=== PATIENT | female | born 1995 ===

== ENCOUNTER 2017-08-16 13:37 | Observation (INO) ==
--- NOTE | 2017-08-16 13:47 | PDOC ---
General Adult HPI - General Chief Complaint: General Medical Stated Complaint: N/V Date Seen by Provider: 08/16/17 Time Seen by Provider: 13:47 Source: POSITIVE: Patient Exam Limitations: POSITIVE: No limitations Nurse's Notes Reviewed & Considered: Yes - History of Present Illness Initial Comment: Patient is a 22-year-old female who presents to the burn department with nausea vomiting diarrhea. Patient is . She reports her symptoms started over the last 24 hours. Over the last week she has had cold with mild sore throat and congestion. Mother indicates that she's been very weak during this . She had some vaginal discharge and started herself on metronidazole which seems to be improving. Does have abdominal pain and points primarily to the epigastrium. Worse with vomiting. She was sick and seen in [facility] earlier today with fluids and Zofran. Have you received a tetanus shot in the past 10 years?: Unknown - Patient Home Medications Home Medications: Home Medications Vits W-Ca,Fe,FA(<1Mg) [] 1 tab PO DAILY 08/16/17 metroNIDAZOLE Tab [Flagyl Tab] 500 mg PO DAILY 08/16/17 - Patient Allergies Allergies/Adverse Reactions: Allergies 3 Allergy/AdvReac Type Severity Reaction Status Date / Time No Known Allergies Allergy Verified 08/16/17 14:05 Past Medical History - heen HEENT History: Denies History Cardiovascular History: Denies History Respiratory History: Denies History Gastrointestinal History: Denies History Genitourinary History: Denies History Endocrine History: Gestational Diabetes Musculoskeletal History: Denies History Neurological History: Denies History Blood Disorders: Denies History Psychiatric History: Denies History History of Sexually Transmitted Diseases: No Obstetrical History: Other (please comment) Additional Obstetrical History: Tobacco Use: Current Some Day Smoker Alcohol Use: None Previous Surgical History: Yes Type / Date of Surgery: Choly Significant Family History: No pertinent family hx Past Medical History Reviewed: New Intake History ROS - Limitations ROS Limitations: No Limitations Constitution: DENIES: Fever Cardiovascular: REPORTS: Denies Cardiac Symptoms Respiratory: REPORTS: Cough Non Productive Neurological: REPORTS: Headache Gastrointestinal: REPORTS: Abdominal Pain, Nausea, Vomitting, Diarrhea Endocrine: REPORTS: Fatigue Musculoskeletal: REPORTS: Denies MS Symptoms Genitourinary: REPORTS: Discharge Eyes: REPORTS: Denies Symptoms ENT: REPORTS: Denies Symptoms Skin: REPORTS: Denies Skin Symptoms Lympathic: REPORTS: Denies Lympathic Symptoms Immunologic: POSITIVE: Denies Symptoms General Adult Exam - General Appearance General Appearance: POSITIVE: Alert, Cooperative, Anxious - HEENT HEENT: POSITIVE: Head Inspection Nml, Eyes Inspection Nml, Ears Inspection Nml, Nose Inspection Nml, Oral/Dental Inspect. Nml, Pharynx Inspect. Nml - Pupils Pupil Size: 4 mm: Bilateral - Neck Neck: POSITIVE: Normal Inspection - Respiratory Respiratory: POSITIVE: No Respiratory Distress, Breath Sounds Normal, Chest Non- Tender - Cardiovascular Cardiovascular: POSITIVE: Regular Rate & Rhythm, No Murmur, No Gallop - Abdomen Additional Abdominal Details: Mild tenderness to palpation of the epigastrium. No significant lower abdominal tenderness to palpation. - Back Back: POSITIVE: Normal Inspection - Skin Skin: POSITIVE: Normal Color, Warm, Dry - Extremities Extremity: Non-Tender: (All Extremities), Normal ROM: (All Extremities) - Neurological / Psychological Neurological: POSITIVE: Affect Apporpriate, Oriented X3 General Adult Progress - Results Reviewed by me CBC and BMP: 08/16/17 13:58 08/16/17 13:58 - Patient's Progress MDM / ED Course: Patient is a 22-year-old female who presents to the emergency department with nausea vomiting. Vital signs are unremarkable examination him strict mild epigastric tenderness. Differential diagnosis includes but is not limited to gastritis, hyperemesis gravidarum, dehydration, pelvic infection. For serious intra-abdominal process with normal white blood cell count or tenderness over the appendix. Patient is status post cholecystectomy. Urinalysis doesn't demonstrate large ketones. No evidence of infection. Patient's pelvic swabs are negative. His glucose margareth injury or blow Zofran and Reglan feeling somewhat improved though given she had a 40 been to 1 emergency department and second presentation after hydration was continued large ketones feel that would be appropriate to admit patient for hydration and continue control of symptoms. Patient's amenable this plan. I spoke with Dr. Bonilla who graciously admitted the patient for further treatment. Patient Care Time - Estimated PCT Patient Care Time (In Minutes): 45 Vital Signs - Recent Vital Signs Vital Signs: Vital Signs (Last 8 hours) Temp Pulse Resp BP Pulse Ox 08/16/17 13:37 98.4 F 105 H 20 114/90 99 - VS Reviewed Vital Signs Reviewed: Yes Discharge Clinical Impression: Dehydration Discharge Disposition: Admit to Observation Condition: Fair Follow Up With: BOB ALBARADO [Primary Care Provider] - Date Decision to Admit to Inpatient: 08/16/17 Time Decision to Admit to Inpatient: 16:48
[2017-08-16] MEDS ORDERED: Sodium Chloride 0.9% 1,000 ML PRIMARY IV ONE (14:00)
[2017-08-16] MEDS ORDERED: Metoclopramide Inj 10 MG/2 ML VIAL IVP ONE (14:00)
[2017-08-16 14:13] LABS: BASOPHILS # (AUTO) 0.01 10*3/UL; BASOPHILS % (AUTO) 0.1 % (0-1); EOSINOPHILS # (AUTO) 0.03 10*3/UL; EOSINOPHILS % (AUTO) 0.4 % (0-8); Hematocrit [HCT] 39.2 % (37.0-47.0); Hemoglobin [HGB] 14.7 g/dL (12.0-16.0); LYMPHOCYTES # (AUTO) 0.46 10*3/uL; MEAN CORPUSCULAR HEMOGLOBIN 33.9 PG (27-31); MEAN CORPUSCULAR HGB CONC 37.5 g/dL (33-37); MEAN CORPUSCULAR VOLUME 90.3 FL (81-99); MEAN PLATELET VOLUME 10.8 FL (7.4-12.2); MONOCYTES % (AUTO) 7.4 % (5-15); NEUTROPHILS # (AUTO) 6.98 10*3/UL; NEUTROPHILS % (AUTO) 86.2 % (50-80); RED BLOOD COUNT 4.34 10^6/uL (4.20-5.40)
[2017-08-16 14:16] LABS: BLOOD UREA NITROGEN 7 mg/dL (7-22); LIPASE 84 IU/L (23-300); SERUM ALBUMIN 4.3 g/dL (3.5-4.8)
[2017-08-16 14:24] LABS: PLATELET MORPHOLOGY COMMENT NORMAL MORPHOLOGY (NORM); RBC MORPHOLOGY COMMENT NORMAL MORPHOLOGY (NORM); WBC MORPHOLOGY COMMENT NORMAL MORPHOLOGY (NORM)
[2017-08-16] MEDS ORDERED: Belladon/PHENobarbital Elixir 10 ML, Lidocaine Viscous Liquid 2% 15 ML, Mag Hyd/Al Hyd/... PO ONE ×3 (15:00)
[2017-08-16] MEDS ORDERED: ONDANSETRON 4 MG/2 ML VIAL IVP ONE (15:00)
[2017-08-16] MEDS ORDERED: MAG HYDROX/AL HYDROX/SIMETH 30 ML SUSP PO ONE (15:30)
[2017-08-16] MEDS ORDERED: LIDOCAINE 2% VISCOUS(20 MG/1 ML) - 15 ML UD CUP PO ONE (15:30)
[2017-08-16 15:56] LABS: BILIRUBIN,URINE SMALL (NEG); CLARITY,URINE CLEAR (CLEAR); COLOR,URINE YELLOW; GLUCOSE, URINE (UA) NEGATIVE (NEG); OCCULT BLOOD,URINE NEGATIVE (NEG); PROTEIN,URINE NEGATIVE (NEG); UROBILINOGEN,URINE 0.2 mg/dL (0.2)
[2017-08-16 16:06] LABS: URINE SAMPLE TYPE CLEAN CATCH URINE
[2017-08-16 16:07] LABS: BACTERIA,URINE RARE; RBC,URINE 0-3 /hpf; SQUAMOUS EPITHELIAL CELL,UR RARE
[2017-08-16] MEDS ORDERED: D5-1/2NS 1,000 ML PRIMARY IV ONE (16:30)
[2017-08-16] MEDS ORDERED: NORMAL SALINE 10 ML SYRINGE FLUSH IVP PRN ×2 (17:16→23:42)
[2017-08-16] MEDS ORDERED: Sodium Chloride 0.9% 1,000 ML PRIMARY IV SCH (17:30)
[2017-08-16] MEDS: ONDANSETRON 4 MG/2 ML VIAL IVP PRN (18:41)
[2017-08-16] MEDS: ACETAMINOPHEN 325 MG TABLET PO PRN (19:29)
[2017-08-16] MEDS: D5-1/2NS 1,000 ML PRIMARY IV SCH (19:51)
[2017-08-16] MEDS ORDERED: LIDOCAINE W/ SODIUM BICARB 0.5 ML SYR SUBD PRN (23:42)
[2017-08-17] MEDS: ACETAMINOPHEN 325 MG TABLET PO PRN (00:48)
[2017-08-17] MEDS: D5-1/2NS 1,000 ML PRIMARY IV SCH ×2 (03:19→13:40)
[2017-08-17 04:29] LABS: BASOPHILS # (AUTO) 0.01 10*3/UL; BASOPHILS % (AUTO) 0.3 % (0-1); EOSINOPHILS # (AUTO) 0.05 10*3/UL; EOSINOPHILS % (AUTO) 1.3 % (0-8); Hematocrit [HCT] 35.5 % (37.0-47.0); Hemoglobin [HGB] 12.7 g/dL (12.0-16.0); LYMPHOCYTES # (AUTO) 0.94 10*3/uL; MEAN CORPUSCULAR HEMOGLOBIN 33.1 PG (27-31); MEAN CORPUSCULAR HGB CONC 35.8 g/dL (33-37); MEAN CORPUSCULAR VOLUME 92.4 FL (81-99); MEAN PLATELET VOLUME 10.7 FL (7.4-12.2); MONOCYTES # (AUTO) 0.43 10*3/UL (0.3-0.8); MONOCYTES % (AUTO) 11.1 % (5-15); NEUTROPHILS # (AUTO) 2.45 10*3/UL; NEUTROPHILS % (AUTO) 63.1 % (50-80); PLATELET MORPHOLOGY COMMENT NORMAL MORPHOLOGY (NORM); RBC MORPHOLOGY COMMENT NORMAL MORPHOLOGY (NORM); RED BLOOD COUNT 3.84 10^6/uL (4.20-5.40); WBC MORPHOLOGY COMMENT NORMAL MORPHOLOGY (NORM)
[2017-08-17 04:34] LABS: BLOOD UREA NITROGEN 3 mg/dL (7-22); SERUM ALBUMIN 3.1 g/dL (3.5-4.8)
[2017-08-17] MEDS ORDERED: metroNIDAZOLE Tab 500 MG TAB PO SCH (09:30)
[2017-08-17] MEDS: ONDANSETRON 4 MG/2 ML VIAL IVP PRN (09:40)
[2017-08-17 11:26] VITALS: BP 116/68; RESP 18; TEMP 97.1; O2SAT 96
[2017-08-17] MEDS ORDERED: CYCLOBENZAPRINE 10 MG TABLET PO PRN (13:34)
[2017-08-17] MEDS ORDERED: Acet/Butalb/Caff 325-50-40 1 TAB TABLET PO PRN (13:35)
[2017-08-17] MEDS ORDERED: D5-1/2NS 1,000 ML PRIMARY IV SCH (13:39)
--- NOTE | 2017-08-17 15:46 | PDOC ---
HPI - History of Present Illness Date of Service: 08/17/17 Time of Service: 22:00 Chief Complaint: nausea and vomiting History of Present Illness: Pt is a 22 yo at roughly 14 weeks gestation who states that she hasn't been feeling well for the past 36 hours. + nausea, vomiting, has had a few bouts of diarrhea. No mucus or blood in the diarrhea. She reports no fevers. No known sick contacts. Hasn't really had any vomiting throughout this , but has had some mild nausea. She has had some vaginal discharge, but vag panel and gc/chlamydia testing in the ER was negative. No movement noted yet due to her early gestation. She was seen earlier today in the ER in [place] for the nausea and vomiting and was given fluids and had labs drawn, which were reportedly unremarkable. She went home and was unable to keep anything down, so was brought to [place] per some acquaintances for evaluation here. Her normal physician for her is Dr. Gonzales. Past Medical History Medical History: Gestational diabetes with last , which was delivered in April 2016. Surgical History: Cholecystectomy Past Social History: currently single, living in [place] but planning on moving back to [place], [place], where her mother lives. Has custody of her 1 yo son. Denies alcohol use. Used to smoke greater than 1 PPD until she found out she was and then she quit. Tobacco Use: Light Tobacco Smoker Do you dip or chew tobacco: No In the Past 12 Months, Have Used or Abuse Any of the Following Substance: None Alcohol Use: None Medication / Allergies Home Medications: Home Medications 3 Medication Instructions Recorded Confirmed Type Vits W-Ca,Fe,FA(<1Mg) 1 tab PO DAILY 08/16/17 08/16/17 History [] Butalb/Acetaminophen/Caffeine 1 ea PO Q4H PRN #10 tab 08/17/17 Rx [Fioricet 50-325-40 Mg Tablet] Cyclobenzaprine HCl [Flexeril] 5 - 10 mg PO TID PRN #20 tab 08/17/17 Rx metroNIDAZOLE Tab [Flagyl Tab] 500 mg PO TID #30 tab 08/17/17 Rx Allergies/Adverse Reactions: Allergies 3 Allergy/AdvReac Type Severity Reaction Status Date / Time No Known Allergies Allergy Verified 08/17/17 06:39 Review of Systems - Constitutional Constitutional: REPORTS: General Health Good, Fatigue, Recent Illness - Integumentary Integumentary: DENIES: Rash, Itching - Mouth/Throat Mouth/Throat Exam: DENIES: Sore Throat - Respiratory Respiratory: DENIES: Cough, Wheezing - Cardiovascular Cardiovascular: DENIES: Chest Pain, Syncope, Palpitations - Gastrointestinal Gastrointestinal / Abdominal: REPORTS: Nausea, Vomiting, Diarrhea, Abdominal Pain. DENIES: Bloody Stool, Heartburn, Regurgitation, Bloating - Genitourinary Genitourinary: REPORTS: Discharge. DENIES: Pain, Burning, Hematuria - Gynecological Gynecological: REPORTS: Vaginal Discharge. DENIES: Pelvic Pain, Breast Tenderness, Breast Mass, Breast Discharge : 2 Para: 1 Contraception: No - Musculoskeletal Musculoskeletal: REPORTS: Back Pain, Neck Pain. DENIES: Calf Pain, Muscle Pain , Cramping - Hematlogic / Lymphatic Hematologic / Lymphatic: REPORTS: Negative System Review - Neurological Neurologic: REPORTS: Headache. DENIES: Numbness/Paresthesia, Tremors, Weakness - Psychiatric Psychiatric: REPORTS: Negative System Review Exam - Vitals Vital Signs: Vital Signs Temperature 97.1 F Temperature Source Temporal Artery Scan Pulse Rate [Pulse Oximeter 78 Right] Respiratory Rate 18 Blood Pressure [Left Arm] 116/68 Pulse Ox 96 Oxygen Delivery Method Room Air Height 5 ft 7 in Weight 191 lb 9.6 oz - General General Appearance: Mild Distress (secondary to back and neck pain) - Head Head Exam: Normal Inspection - Neck Neck Exam: Tenderness (right trapezoid is tight and painful to palpation) - Respiratory Respiratory Exam: POSITIVE: Clear to Auscultation - Bilaterally, Breathing Non Labored - Cardiovascular Cardiovascular Exam: POSITIVE: RRR, No Murmur - GI/Abdominal GI/Abdominal Exam: POSITIVE: Normal Bowel Sounds, Non Tender, Non Distended, Soft - Rectal Rectal Exam: POSITIVE: Deferred - External Exam: POSITIVE: Deferred - Extremities Extremities Exam: POSITIVE: Normal Inspection, Full ROM, Normal Capillary Refill - Back Back Exam: NEGATIVE: CVA Tenderness (L), CVA Tenderness (R) - Neurological Neurological Exam: POSITIVE: Alert, Oriented x 3 - Psychiatric Psychiatric Exam: POSITIVE: Flat Affect - Integumentary Integumentary Exam: POSITIVE: Normal Color, Warm, Dry Results - Labs CBC and BMP: 08/17/17 04:20 08/17/17 04:20 Assessment and Plan - Patient Problems (1) Dehydration Status: Acute Code(s): E86.0 - Dehydration (2) Back pain Status: Acute Code(s): M54.9 - Dorsalgia, unspecified Qualifiers: Back pain location: low back pain Chronicity: chronic Back pain laterality: unspecified Sciatica presence: without sciatica Qualified Code(s ): M54.5 - Low back pain; G89.29 - Other chronic pain (3) Status: Acute Code(s): Z34.90 - Encounter for supervision of normal , unspecified, unspecified trimester Qualifiers: Weeks of gestation: 14 weeks Qualified Code(s): Z3A.14 - 14 weeks gestation of - Assessment / Plan Additional Assessment/Plan Details: -will rehydrate overnoc and treat with anti-emetics as needed. Suspect this is more of a viral process vs hyperemesis since she hasn't been that sick in the up until now. -check C. dif with her diarrhea and abdominal pain. -FHT every shift. -will plan to have PT see her in the am for treatment of her neck and back pain. -possible d/c home in 1-2 days.
--- NOTE | 2017-08-17 17:56 | PDOC(PROG) ---
Date and Time of Service: 08/17/17 @ 1330 Interval History: Pt reports that she is really not feeling that much better today as she is having a lot of neck and back pain. Has apparently told the nurse that Dilcayetanoid has worked for this pain in the past--specifically several days ago when she was seen in the ER in [place]. Tylenol and hot packs are now not helping her. She does report that she is able to eat and drink normally, has had no vomiting since admission. She has had a few diarrhea stools. Her C. dif was positive this morning and she has received 1 dose of flagyl. She denies recent antibiotic use. Objective : Data - Labs CBC and BMP: 08/17/17 04:20 08/17/17 04:20 Objective : Exam - General General Appearance: No Acute Distress, Cooperative - Head Head Exam: Normal Inspection - Neck Neck Exam: Normal Inspection, Tenderness (along right trapezoid) - Respiratory Respiratory Exam: Clear to Auscultation - Bilaterally, Breathing Non Labored - Cardiovascular Cardiovascular Exam: RRR, No Murmur - GI/Abdominal GI/Abdominal Exam: Normal Bowel Sounds, Non Tender, Non Distended, Soft - Extremities Extremities Exam: Normal Inspection, Full ROM, Normal Capillary Refill - Back Back Exam: Normal Inspection, Paraspinal Tenderness - Neurological Neurological Exam: Alert, Oriented x 3 - Psychiatric Psychiatric Exam: Flat Affect - Integumentary Integumentary Exam: Normal Color, Warm, Dry Assessment and Plan - Patient Problems (1) Dehydration Status: Resolved Code(s): E86.0 - Dehydration (2) Back pain Status: Chronic Code(s): M54.9 - Dorsalgia, unspecified Qualifiers: Back pain location: low back pain Chronicity: chronic Back pain laterality: unspecified Sciatica presence: without sciatica Qualified Code(s ): M54.5 - Low back pain; G89.29 - Other chronic pain (3) Status: Acute Code(s): Z34.90 - Encounter for supervision of normal , unspecified, unspecified trimester Qualifiers: Weeks of gestation: 14 weeks Qualified Code(s): Z3A.14 - 14 weeks gestation of - Assessment / Plan Additional Assessment/Plan Details: -pt was still complaining of neck and back pain, despite PT seeing her this morning. Pt has since removed the kinesiotaping that was done per PT. We tried flexeril and fioricet, which resolved her COLE completely. -she is sufficiently rehydrated. IV was discontinued. -for her C. dif., will treat with flagyl 500 mg po tid x 10 days. -pt told me today that she plans to move back to [place], [place], where her mother lives, in the next 1-2 weeks. DISCHARGE NOTE: Admission diagnosis: Dehydration, Gastroenteritis, Discharge diagnosis: C. dif colitis, , back and neck pain Outcome: rehydration, initiation of antibiotic therapy with flagyl. Treatment of migraine COLE with fioricet and flexeril. Follow up: 1-[address] Gonzales if she is still in the area; otherwise , she was asked to f/u with her ob in [place] upon her arrival there. Dispo: home Diet: regular.
--- NOTE | 2017-08-18 14:57 | PTI REPORT ---
Thank you for the referral of Isidra Narayan. She was seen on 08/17/17 for an inpatient evaluation secondary to a tension headache. SUBJECTIVE: The patient is a 22-year-old female who states that she presented to the hospital secondary to dehydration. She was having nausea, vomiting, diarrhea, and was diagnosed with c.diff for which the patient was hospitalized. The patient states that starting last night she began to get a headache on her left side that feels like it goes right up along the left side of her scalp and behind her left ear. The patient states that her headache has increased since last night and she feels a lot of pressure above her left eye. The patient states a previous history of having tension headaches. She states approximately 5 days ago she did go to the ER with a migraine that she had been having for 3 days prior. She said that she was taking Excedrin which seemed to help her headache symptoms and she had not had one when she first presented to the hospital. The patient is 15 weeks as well. Nursing has tried heat packs to help with the patient's tension headache symptoms, but the patient reports they did not help and if nothing else they might have increased her symptoms. PAST MEDICAL HISTORY: Past medical history can be found in the patient's medical record. OBJECTIVE FINDINGS: The patient was alert and oriented to setting upon PT arrival. The patient did have her head in a forward flexed position secondary to her headache and did need the lights dimmed due to her headache symptoms. We did attempt Grade I mobilizations for cervical spine; the patient was very sensitive to light touch. We also did try some manual release and gentle soft tissue mobilization for the left and right upper trapezius and levator. The patient was unable to tolerate much manual therapy due to increased symptoms. We did also attempt some pressure relieving techniques with the scalp and also onto the facial muscles. The patient did slightly better with those techniques. The therapist did attempt to do some gentle stretching for the upper trapezius and levator bilaterally. The patient was only able to tolerate very light stretching techniques and did not do very well with the manual therapy. The therapist did apply Kinesio tape for a tension headache and for inhibition of the bilateral upper traps and bilateral levators. The therapist did instruct the patient on proper use of taping ASSESSMENT: The patient has fair potential secondary to the fact that she is only going to be here for the rest of today and has a history of tension headaches and being unable to tolerate any manual therapy. The patient was on c.diff precautions which did make it more difficult to use any type of modalities for her headaches. Problem List: Tension headache left side Short-Term Goals: To be met by discharge from inpatient: Patient will report at least 50% improvement in her tension headache. Long-Term Goals: To be met following discharge from inpatient: Patient may require additional outpatient therapy if her tension headaches persist. Hopefully at that time she won't be on precautions and we will be able to utilize modalities for pain modulation. TREATMENT PLAN: Patient will be seen one time only as the patient is planning to discharge today. If the patient remains at the hospital, we will see her tomorrow to see if she would be willing to try any further manual therapy. INITIAL TREATMENT: Treatment today consisted of the initial evaluation activities only. JORGE
== END 2017-08-17 15:20 | disposition home or self-care (01) ==
LOC: MED/SURG 13:37 → ER 13:37 → MED/SURG 18:35
PROVIDERS: ADMIT Family Medicine; ATTEND Family Medicine